=== PATIENT | female | born 1945 | race Caucasian/White ===

== ENCOUNTER → 2018-01-03 | Outpatient (CLI) | payer MEDICARE, OTHER ==
[2018-01-03 13:26] LABS: ADD MAN DIFF? NO
[2018-01-03 13:42] LABS: WHITE BLOOD COUNT 7.6 10^3/ul (4.8-10.8)
[2018-01-03 13:42] LABS: ADD UMIC YES; BASOPHILS % 0.5 % (0.0-2.0); EOSINOPHILS # 0.1 10^3/ul (0.0-0.5); EOSINOPHILS % 1.4 % (0.0-7.0); HEMATOCRIT 37.9 % (37.0-47.0); HEMOGLOBIN 12.1 g/dl (12.0-16.0); LYMPHOCYTES # 1.9 10^3/ul (0.8-2.9); MEAN CORPUSCULAR HEMOGLOBIN 28.9 pg (29.0-33.0); MEAN CORPUSCULAR HGB CONC 31.9 g/dl (32.0-37.0); MEAN CORPUSCULAR VOLUME 90.5 fl (82.0-101.0); MEAN PLATELET VOLUME 10.1 fl (7.4-10.4); MONOCYTE # 0.8 10^3/ul (0.3-0.9); NEUTROPHIL # 4.8 10^3/ul (1.6-7.5); NEUTROPHILS % 62.7 % (39.0-77.0); PLATELET COUNT 270 10^3/UL (140-415); RED BLOOD COUNT 4.19 10^6/ul (4.20-5.40); RED CELL DISTRIBUTION WIDTH 15.2 % (11.5-14.5); UR ASCORBIC ACID NEGATIVE (NEGATIVE); UR BILIRUBIN (Dip) NEGATIVE (NEGATIVE); UR BLOOD (Dip) NEGATIVE (NEGATIVE); UR CLARITY SLIGHTLY CLOUDY (CLEAR); UR COLOR YELLOW (YELLOW); UR GLUCOSE (Dip) NEGATIVE (NEGATIVE); UR KETONES (Dip) NEGATIVE (NEGATIVE); UR LEUKOCYTE ESTERASE (Dip) 1+ Leu/ul (NEGATIVE); UR NITRITE (Dip) NEGATIVE (NEGATIVE); UR RBC 2 /HPF (0-5); UR SPECIFIC GRAVITY (Dip) 1.009 (1.003-1.030); UR SQUAMOUS EPITHELIAL CELL MODERATE /HPF (FEW); UR TOTAL PROTEIN (Dip) NEGATIVE (NEGATIVE); UR UROBILINOGEN (Dip) NEGATIVE (NEGATIVE); UR WBC 1 /HPF (0-5)
[2018-01-03 13:59] LABS: ANION GAP 14 (8-16); BLOOD UREA NITROGEN 27 mg/dl (7-20); CALCIUM 9.3 mg/dl (8.4-10.2); CARBON DIOXIDE 24 mmol/L (21-31); CHLORIDE 108 mmol/L (97-110); CREATININE 1.73 mg/dl (0.44-1.00); GLUCOSE 151 mg/dl (70-220); POTASSIUM 4.5 mmol/L (3.5-5.1); SODIUM 141 mmol/L (135-144)
[2018-01-03 14:03] LABS: INR 0.86; PARTIAL THROMBOPLASTIN TIME 25.3 Sec (25.0-35.0); PROTIME 11.8 Sec (11.9-14.9); PT RATIO 0.9
== END | disposition home or self-care (01) ==
LOC: LAB 08:00
DX: Z01.818 Encounter for other preprocedural examination (principal); I65.21 Occlusion and stenosis of right carotid artery; I10 Essential (primary) hypertension; E11.9 Type 2 diabetes mellitus without complications; I51.7 Cardiomegaly; I70.90 Unspecified atherosclerosis
CPT/HCPCS: 71045; 80048; 81001; 85025; 85610; 85730; 93005

== ENCOUNTER 2018-01-06 01:30 | Observation (INO) | payer MEDICARE, OTHER ==
[2018-01-06] MEDS: SOD CHLORIDE 0.9% 500 ML IV (03:20)
[2018-01-06 03:22] LABS: ADD MAN DIFF? NO
[2018-01-06 03:23] LABS: BASOPHIL # 0.1 10^3/ul (0.0-0.1); BASOPHILS % 0.8 % (0.0-2.0); EOSINOPHILS # 0.1 10^3/ul (0.0-0.5); EOSINOPHILS % 1.5 % (0.0-7.0); HEMOGLOBIN 10.9 g/dl (12.0-16.0); LYMPHOCYTES # 2.2 10^3/ul (0.8-2.9); LYMPHOCYTES % 25.1 % (15.0-51.0); MEAN CORPUSCULAR HEMOGLOBIN 28.1 pg (29.0-33.0); MEAN CORPUSCULAR HGB CONC 30.3 g/dl (32.0-37.0); MEAN CORPUSCULAR VOLUME 92.8 fl (82.0-101.0); MEAN PLATELET VOLUME 9.8 fl (7.4-10.4); MONOCYTE # 0.9 10^3/ul (0.3-0.9); MONOCYTES % 10.4 % (0.0-11.0); NEUTROPHIL # 5.4 10^3/ul (1.6-7.5); NEUTROPHILS % 61.7 % (39.0-77.0); PLATELET COUNT 249 10^3/UL (140-415); RED BLOOD COUNT 3.88 10^6/ul (4.20-5.40); RED CELL DISTRIBUTION WIDTH 15.5 % (11.5-14.5)
[2018-01-06 03:23] LABS: WHITE BLOOD COUNT 8.8 10^3/ul (4.8-10.8)
[2018-01-06 03:47] LABS: ALANINE AMINOTRANSFERASE 23 IU/L (13-69); ALBUMIN 3.9 g/dl (3.3-4.9); ALBUMIN/GLOBULIN RATIO 1.25; ALKALINE PHOSPHATASE 96 IU/L (42-121); ANION GAP 15 (8-16); ASPARTATE AMINO TRANSFERASE 18 IU/L (15-46); BILIRUBIN,INDIRECT 0.1 mg/dl (0-1.1); BILIRUBIN,TOTAL 0.1 mg/dl (0.2-1.3); BLOOD UREA NITROGEN 35 mg/dl (7-20); CALCIUM 8.9 mg/dl (8.4-10.2); CARBON DIOXIDE 23 mmol/L (21-31); CHLORIDE 112 mmol/L (97-110); CREATININE 1.73 mg/dl (0.44-1.00); GLUCOSE 142 mg/dl (70-220); POTASSIUM 4.5 mmol/L (3.5-5.1); SODIUM 145 mmol/L (135-144)
[2018-01-06 03:56] LABS: B-TYPE NATRIURETIC PEPTIDE 1180 PG/ML (0-125); TROPONIN-I 0.018 ng/ml (0.000-0.120)
[2018-01-06 08:10] LABS: CREATINE KINASE 50 IU/L (23-200)
[2018-01-06 08:17] LABS: CK INDEX 1.7; CK-MB 0.84 ng/ml (0.0-2.4); TROPONIN-I 0.023 ng/ml (0.000-0.120)
[2018-01-06] MEDS ORDERED: DOCUSATE SODIUM 100 MG CAP PO (09:30)
[2018-01-06] MEDS ORDERED: DEXTROSE 50% 50 ML SYRINGE IV ×2 (09:30)
[2018-01-06] MEDS ORDERED: NACL 0.9% 3 ML SYG IV (09:30)
[2018-01-06] MEDS ORDERED: GLUCAGON 1 MG INJ IM (09:30)
[2018-01-06] MEDS ORDERED: HYDROCODONE/APAP (5/325) TAB PO (09:30)
[2018-01-06] MEDS ORDERED: ONDANSETRON 4 MG INJ IV (09:30)
[2018-01-06] MEDS ORDERED: morphine 2 MG INJ IV (09:30)
[2018-01-06] MEDS ORDERED: MAGNESIUM HYDROXIDE 30ML CUP PO (09:30)
[2018-01-06] MEDS ORDERED: GLUCOSE GEL 15 GRAM TUBE PO ×2 (09:30)
[2018-01-06] MEDS ORDERED: NITROGLYCERIN (SL) 0.4 MG TAB SL (09:30)
[2018-01-06] MEDS ORDERED: GLUCOSE GEL 15 GRAM TUBE BUCCAL (09:30)
[2018-01-06] MEDS ORDERED: ACETAMINOPHEN 325 MG TAB PO (09:30)
[2018-01-06] MEDS ORDERED: BISACODYL 10 MG SUPP PR (09:30)
[2018-01-06 11:19] LABS: ALANINE AMINOTRANSFERASE 30 IU/L (13-69); ALBUMIN 3.4 g/dl (3.3-4.9); ALBUMIN/GLOBULIN RATIO 1.13; ALKALINE PHOSPHATASE 79 IU/L (42-121); ANION GAP 13 (8-16); ASPARTATE AMINO TRANSFERASE 19 IU/L (15-46); BILIRUBIN,INDIRECT 0.2 mg/dl (0-1.1); BILIRUBIN,TOTAL 0.2 mg/dl (0.2-1.3); BLOOD UREA NITROGEN 32 mg/dl (7-20); CALCIUM 8.7 mg/dl (8.4-10.2); CARBON DIOXIDE 23 mmol/L (21-31); CHLORIDE 114 mmol/L (97-110); CREATININE 1.59 mg/dl (0.44-1.00); GLUCOSE 93 mg/dl (70-220); POTASSIUM 4.8 mmol/L (3.5-5.1); SODIUM 145 mmol/L (135-144); TOTAL PROTEIN 6.4 g/dl (6.1-8.1)
[2018-01-06 11:59] LABS: HEMOGLOBIN A1C 7.6 % (0-5.9)
[2018-01-06] MEDS: INSULIN ASPART [NOVOLOG] 3 ML PEN SC ×3 (12:00→20:47)
[2018-01-06] MEDS: SUCRALFATE 1 GM TAB PO ×2 (12:14→17:41)
[2018-01-06] MEDS: ISOSORBIDE MONONITRATE(SR)30 MG TAB PO (12:21)
[2018-01-06] MEDS ORDERED: HEPARIN 5,000 UNIT/0.5 ML VIAL SC (14:00)
[2018-01-06 14:23] LABS: CREATINE KINASE 51 IU/L (23-200)
[2018-01-06 14:34] LABS: CK INDEX 1.6; CK-MB 0.81 ng/ml (0.0-2.4)
[2018-01-06] MEDS ORDERED: morphine LIQ (10 MG/5 ML) CUP PO (16:30)
[2018-01-06] MEDS: PANTOPRAZOLE (EC) 40 MG TAB PO (17:40)
[2018-01-06] MEDS: DICYCLOMINE 10 MG CAP PO (20:42)
[2018-01-06] MEDS: ATORVASTATIN 40 MG TAB PO (20:43)
[2018-01-06] MEDS: LISINOPRIL 10 MG TAB PO (20:43)
[2018-01-06] MEDS: INSULIN GLARGINE [LANTus] (100 UNITS/ML) SYG SC (20:47)
[2018-01-06] MEDS: PREGABALIN 50 MG CAP PO (21:58)
[2018-01-07] MEDS: SUCRALFATE 1 GM TAB PO ×3 (00:30→11:56)
[2018-01-07] MEDS: ACCU-CHEK XX (02:00)
[2018-01-07] MEDS: PANTOPRAZOLE (EC) 40 MG TAB PO (06:26)
[2018-01-07] MEDS: INSULIN ASPART [NOVOLOG] 3 ML PEN SC (08:00)
[2018-01-07] MEDS: LINAGLIPTIN 5 MG TABLET PO (08:11)
[2018-01-07] MEDS: CLOPIDOGREL 75 MG TAB PO (08:11)
[2018-01-07] MEDS: DICYCLOMINE 10 MG CAP PO (08:11)
[2018-01-07] MEDS: LISINOPRIL 10 MG TAB PO (08:12)
[2018-01-07] MEDS: RANOLAZINE (SR) 500 MG TAB PO (08:12)
[2018-01-07] MEDS: ISOSORBIDE MONONITRATE(SR)30 MG TAB PO (08:13)
[2018-01-07] MEDS: PREGABALIN 50 MG CAP PO (08:13)
[2018-01-07 08:38] LABS: ANION GAP 12 (8-16); BLOOD UREA NITROGEN 34 mg/dl (7-20); CALCIUM 8.7 mg/dl (8.4-10.2); CARBON DIOXIDE 23 mmol/L (21-31); CHLORIDE 113 mmol/L (97-110); CREATININE 1.62 mg/dl (0.44-1.00); GLUCOSE 147 mg/dl (70-220); POTASSIUM 4.7 mmol/L (3.5-5.1); SODIUM 143 mmol/L (135-144)
[2018-01-07] MEDS ORDERED: ASPIRIN 81 MG TAB PO (09:00)
[2018-01-07] MEDS ORDERED: ISOSORBIDE MONONITRATE(SR)30 MG TAB PO (09:00)
[2018-01-07] MEDS: EZETIMIBE 10 MG TAB PO (10:39)
== END 2018-01-07 12:28 | disposition home or self-care (01) ==
LOC: E/R 01:30 → MS4 04:14
DX: R07.89 Other chest pain (principal); I12.9 Hypertensive chronic kidney disease with stage 1 through stage 4 chronic kidney disease, or unspecified chronic kidney disease; E11.22 Type 2 diabetes mellitus with diabetic chronic kidney disease; N18.3 Chronic kidney disease, stage 3 (moderate); Z79.4 Long term (current) use of insulin; K21.9 Gastro-esophageal reflux disease without esophagitis; I42.9 Cardiomyopathy, unspecified; E11.51 Type 2 diabetes mellitus with diabetic peripheral angiopathy without gangrene; E11.42 Type 2 diabetes mellitus with diabetic polyneuropathy; I25.10 Atherosclerotic heart disease of native coronary artery without angina pectoris; Z95.5 Presence of coronary angioplasty implant and graft; D64.9 Anemia, unspecified; E78.5 Hyperlipidemia, unspecified; K29.70 Gastritis, unspecified, without bleeding; Z87.891 Personal history of nicotine dependence
CPT/HCPCS: 36415; 71045; 80048; 80053; 82550; 82553; 82962; 83036; 83735; 83880; 84484; 85025; 93005; 93306; 96360; 99285-25; G0378

== ENCOUNTER 2018-01-26 15:59 | Observation (INO) | payer MEDICARE, OTHER ==
[2018-01-26 16:38] LABS: ADD MAN DIFF? NO
[2018-01-26] MEDS: ASPIRIN 325 MG TAB PO (16:38)
[2018-01-26] MEDS: LIDOCAINE/MYLANTA 40 ML BTL PO (16:38)
[2018-01-26 16:40] LABS: WHITE BLOOD COUNT 7.4 10^3/ul (4.8-10.8)
[2018-01-26 16:40] LABS: BASOPHILS % 0.5 % (0.0-2.0); EOSINOPHILS # 0.1 10^3/ul (0.0-0.5); EOSINOPHILS % 1.1 % (0.0-7.0); HEMATOCRIT 35.6 % (37.0-47.0); LYMPHOCYTES # 1.8 10^3/ul (0.8-2.9); LYMPHOCYTES % 23.9 % (15.0-51.0); MEAN CORPUSCULAR HEMOGLOBIN 27.9 pg (29.0-33.0); MEAN CORPUSCULAR HGB CONC 30.9 g/dl (32.0-37.0); MEAN CORPUSCULAR VOLUME 90.4 fl (82.0-101.0); MEAN PLATELET VOLUME 9.8 fl (7.4-10.4); MONOCYTE # 0.8 10^3/ul (0.3-0.9); MONOCYTES % 11.4 % (0.0-11.0); NEUTROPHIL # 4.6 10^3/ul (1.6-7.5); NEUTROPHILS % 62.6 % (39.0-77.0); PLATELET COUNT 271 10^3/UL (140-415); RED BLOOD COUNT 3.94 10^6/ul (4.20-5.40); RED CELL DISTRIBUTION WIDTH 14.9 % (11.5-14.5)
[2018-01-26 16:56] LABS: ANION GAP 12 (8-16); BLOOD UREA NITROGEN 29 mg/dl (7-20); CALCIUM 8.9 mg/dl (8.4-10.2); CARBON DIOXIDE 25 mmol/L (21-31); CHLORIDE 107 mmol/L (97-110); CREATININE 1.89 mg/dl (0.44-1.00); GLUCOSE 171 mg/dl (70-220); POTASSIUM 4.7 mmol/L (3.5-5.1); SODIUM 139 mmol/L (135-144)
[2018-01-26 17:08] LABS: B-TYPE NATRIURETIC PEPTIDE 512 PG/ML (0-125); TROPONIN-I < 0.010 ng/ml (0.000-0.120)
[2018-01-26] MEDS: SOD CHLORIDE 0.9% 500 ML IV ×2 (18:00→19:31)
[2018-01-26] MEDS ORDERED: NACL 0.9% 3 ML SYG IV (20:30)
[2018-01-26] MEDS ORDERED: BISACODYL 10 MG SUPP PR (20:30)
[2018-01-26] MEDS ORDERED: GLUCOSE GEL 15 GRAM TUBE BUCCAL (20:30)
[2018-01-26] MEDS ORDERED: DEXTROSE 50% 50 ML SYRINGE IV ×2 (20:30)
[2018-01-26] MEDS ORDERED: GLUCOSE GEL 15 GRAM TUBE PO ×2 (20:30)
[2018-01-26] MEDS ORDERED: DOCUSATE SODIUM 100 MG CAP PO (20:30)
[2018-01-26] MEDS ORDERED: ONDANSETRON 4 MG INJ IV (20:30)
[2018-01-26] MEDS ORDERED: MAGNESIUM HYDROXIDE 30ML CUP PO (20:30)
[2018-01-26] MEDS ORDERED: GLUCAGON 1 MG INJ IM (20:30)
[2018-01-26] MEDS ORDERED: NITROGLYCERIN (SL) 0.4 MG TAB SL (20:30)
[2018-01-26] MEDS: INSULIN ASPART [NOVOLOG] 3 ML PEN SC (21:00)
[2018-01-26] MEDS: SUCRALFATE 1 GM TAB PO (21:40)
[2018-01-26] MEDS: SOD CHLORIDE 0.9% 1,000 ML IV (21:40)
[2018-01-26] MEDS: PREGABALIN 100 MG CAP PO (21:40)
[2018-01-26] MEDS: RANOLAZINE (SR) 500 MG TAB PO (21:40)
[2018-01-26] MEDS: EZETIMIBE 10 MG TAB PO (21:40)
[2018-01-26] MEDS: PANTOPRAZOLE (EC) 40 MG TAB PO (21:40)
[2018-01-26] MEDS: ATORVASTATIN 40 MG TAB PO (21:40)
[2018-01-26 23:10] LABS: CREATINE KINASE 84 IU/L (23-200)
[2018-01-26 23:24] LABS: CK INDEX 1.8; TROPONIN-I 0.012 ng/ml (0.000-0.120)
[2018-01-27] MEDS: ACCU-CHEK XX (02:00)
[2018-01-27 05:22] LABS: ADD MAN DIFF? NO
[2018-01-27 05:31] LABS: BASOPHIL # 0.1 10^3/ul (0.0-0.1); EOSINOPHILS # 0.1 10^3/ul (0.0-0.5); EOSINOPHILS % 1.7 % (0.0-7.0); HEMATOCRIT 32.8 % (37.0-47.0); HEMOGLOBIN 9.9 g/dl (12.0-16.0); LYMPHOCYTES % 33.9 % (15.0-51.0); MEAN CORPUSCULAR HEMOGLOBIN 27.9 pg (29.0-33.0); MEAN CORPUSCULAR HGB CONC 30.2 g/dl (32.0-37.0); MEAN CORPUSCULAR VOLUME 92.4 fl (82.0-101.0); MONOCYTE # 0.8 10^3/ul (0.3-0.9); MONOCYTES % 13.4 % (0.0-11.0); NEUTROPHIL # 2.9 10^3/ul (1.6-7.5); NEUTROPHILS % 49.3 % (39.0-77.0); PLATELET COUNT 232 10^3/UL (140-415); RED BLOOD COUNT 3.55 10^6/ul (4.20-5.40); RED CELL DISTRIBUTION WIDTH 15.1 % (11.5-14.5)
[2018-01-27 05:31] LABS: WHITE BLOOD COUNT 5.8 10^3/ul (4.8-10.8)
[2018-01-27 05:46] LABS: CREATINE KINASE 75 IU/L (23-200)
[2018-01-27 05:50] LABS: ANION GAP 7 (8-16); BLOOD UREA NITROGEN 24 mg/dl (7-20); CALCIUM 8.4 mg/dl (8.4-10.2); CARBON DIOXIDE 27 mmol/L (21-31); CHLORIDE 113 mmol/L (97-110); CREATININE 1.57 mg/dl (0.44-1.00); GLUCOSE 113 mg/dl (70-220); MAGNESIUM 2.3 mg/dl (1.7-2.5); POTASSIUM 5.1 mmol/L (3.5-5.1); SODIUM 142 mmol/L (135-144)
[2018-01-27 05:53] LABS: CK INDEX 1.6; CK-MB 1.21 ng/ml (0.0-2.4); TROPONIN-I 0.019 ng/ml (0.000-0.120)
[2018-01-27] MEDS: INSULIN ASPART [NOVOLOG] 3 ML PEN SC ×2 (07:55→12:01)
[2018-01-27] MEDS ORDERED: metFORMIN 500 MG TAB PO (07:55)
[2018-01-27] MEDS: ASCORBIC ACID 500 MG TAB PO (08:18)
[2018-01-27] MEDS: SUCRALFATE 1 GM TAB PO ×2 (08:18→12:28)
[2018-01-27] MEDS: NA POLYST SULFON 15 GM/60 ML BTL PO (08:18)
[2018-01-27] MEDS: RANOLAZINE (SR) 500 MG TAB PO (08:19)
[2018-01-27] MEDS: LINAGLIPTIN 5 MG TABLET PO (08:20)
[2018-01-27] MEDS: PANTOPRAZOLE (EC) 40 MG TAB PO (08:21)
[2018-01-27] MEDS: CYANOCOBALAMIN 500 MCG TAB PO (08:21)
[2018-01-27] MEDS: ISOSORBIDE MONONITRATE(SR)30 MG TAB PO (08:22)
[2018-01-27] MEDS: CLOPIDOGREL 75 MG TAB PO (08:22)
[2018-01-27] MEDS: PREGABALIN 100 MG CAP PO (09:20)
== END 2018-01-27 15:00 | disposition home or self-care (01) ==
LOC: E/R 15:59 → TEL 19:21
DX: I95.1 Orthostatic hypotension (principal); R07.9 Chest pain, unspecified; I25.10 Atherosclerotic heart disease of native coronary artery without angina pectoris; N18.3 Chronic kidney disease, stage 3 (moderate); I73.9 Peripheral vascular disease, unspecified; N17.9 Acute kidney failure, unspecified; E11.42 Type 2 diabetes mellitus with diabetic polyneuropathy; E11.51 Type 2 diabetes mellitus with diabetic peripheral angiopathy without gangrene; I12.9 Hypertensive chronic kidney disease with stage 1 through stage 4 chronic kidney disease, or unspecified chronic kidney disease; E11.22 Type 2 diabetes mellitus with diabetic chronic kidney disease; Z98.61 Coronary angioplasty status; K29.70 Gastritis, unspecified, without bleeding
CPT/HCPCS: 36415; 71045; 80048; 82550; 82553; 82962; 83036; 83735; 83880; 84484; 85025; 87081; 93005; 99217; 99285-25; G0378